=== PATIENT | female | born 1990 | race Two or more races ===

== ENCOUNTER 2019-01-02 08:57 | Outpatient (CLI) | payer OTHER | END 2019-01-02 09:05 | disposition home or self-care (01) | LOC: LAB 08:57 | DX: E04.1 Nontoxic single thyroid nodule (principal) ==

== ENCOUNTER 2019-01-02 09:41 | Outpatient (CLI) | payer OTHER | END 2019-01-02 09:48 | disposition home or self-care (01) | LOC: SONOGRAMA 09:41 | DX: R10.84 Generalized abdominal pain (principal) ==